=== PATIENT | male | born 1980 | race African-American/Black ===

== ENCOUNTER 2016-07-25 08:51 | Emergency (ER) | payer SELFPAY ==
[~2016-07-25] VITALS: Ht 175.3 cm; Wt 87.8 kg
[~2016-07-25 08:51] MED LIST: IBUP800T23 PO; ROBA750T PO
[2016-07-25 09:06] VITALS: BP 135/94; PULSE 82; RESP 16; TEMP 99.6; O2SAT 99
--- NOTE | 2016-07-25 09:29 | PD ---
HPI Chief Complaint: Cold / Flu Symptoms Time Seen by Provider: 09:18 Travel History International Travel<30 days: No Contact w/Intl Traveler<30days: No Traveled to known affect area: No History of Present Illness HPI This patient complains of runny nose and congestion and sore throat and muscle aches. Duration one day. Severity is mild PFSH Past Medical History Medical History: Denies Significant Hx Diminished Hearing: No Tetanus Vaccination: Unknown Past Surgical History Surgical History: No Previous Surgery Social History Alcohol Use: Yes (BEER, OCCASIONALLY) Tobacco Use: Yes (1/2 ppd) Substance Use: Yes (MARIJUANA DAILY) Allergies-Medications (Allergen,Severity, Reaction): Coded Allergies: No Known Allergies (Unverified , 07/25/16) Reported Meds & Prescriptions Reported Meds & Active Scripts Active No Active Prescriptions or Reported Medications Review of Systems General / Constitutional: No: Fever HENT: Positive: Sore Throat, Congestion, No: Headaches Physical Exam Narrative RESPIRATORY: Respiratory effort unlabored, no retractions or use of accessory muscles. Breath sounds are clear and symmetric. NECK: Symmetrical appearance, midline trachea. No mass or crepitus. Thyroid without enlargement, tenderness, or mass. Throat clear Data Data Last Documented VS Vital Signs Date Time Temp Pulse Resp B/P Pulse Ox O2 Delivery O2 Flow Rate FiO2 07/25/16 09:06 99.6 82 16 135/94 99 MDM Medical Decision Making Medical Screen Exam Complete: Yes Emergency Medical Condition: Yes Medical Record Reviewed: Yes Differential Diagnosis Flu syndrome, URI, bronchitis Narrative Course I have reviewed the patient's electronic medical record. Presentation here most consistent with viral syndrome Recommended frequent handwashing and do his best to avoid infecting his infant at home No antibiotics indicated Spontaneous resolution is expected Diagnosis Primary Impression: Acute viral syndrome Additional Instructions: The patient was advised to follow up with their physician and return if they worsen. Med/Other Pt SpecificInfo: Other Scripts No Active Prescriptions or Reported Meds Disposition: 01 DISCHARGE HOME Condition: Stable Javon Dalton MD Jul 25, 2016 09:28
== END 2016-07-25 09:36 | disposition home or self-care (01) ==
LOC: PHEFT 08:51
DX: B34.9 Viral infection, unspecified (principal)
CPT/HCPCS: 99283